=== PATIENT | male | born 1970 | race Caucasian/White ===

== ENCOUNTER 2020-01-25 10:56 | Emergency (ER) | payer OTHER, SELFPAY ==
--- NOTE | ~2020-01-25 | XR_ITS ---
EXAMINATION: XR hand RT min 3V INDICATION: Right hand pain TECHNIQUE: Three views of the right hand are obtained. COMPARISON: None available FINDINGS: No fracture is identified. There is soft tissue swelling of the second finger. There are pu nctate densities in the dorsomedial soft tissues near the head of the second proximal phalanx. There is mild osteoarthritis. IMPRESSION: 1. Punctate soft tissue densities dorsomedial to the head of the second proximal phalanx of unclear e tiology. Reviewed, dictated and finalized at location B. IMPRESSION: 1. Punctate soft tissue densities dorsomedial to the head of the second proxima l phalanx of unclear etiology.
--- NOTE | 2020-01-25 11:11 | ED.GENADULT ---
HPI - General Adult General Chief complaint: Extremity Injury, Upper Stated complaint: Right hand injury Source: patient and RN notes reviewed Mode of arrival: ambulatory Limitations: no limitations History of Present Illness HPI narrative: This is a 49 years old male presents to the office for an evaluation of right hand laceration four days. Incident happened at work. He accidentally hit a heavy sharp edge metal and took a piece of his skin off. He concerned that he might have a stress fracture of his knuckle since it has been more painful to move his finger with some swelling. He is right-hand dominant. He has been splinting his finger and tented his wound at home. He is not on any anticoagulation medication. TD is up-to-date. Related Data Home Medications Medication Instructions Recorded Confirmed citalopram [Celexa] mg 01/25/20 mirtazapine [Remeron] mg 01/25/20 mirtazapine [Remeron] mg 01/25/20 trazodone 01/25/20 Allergies Allergy/AdvReac Type Severity Reaction Status Date / Time No Known Allergies Allergy Unverified 11/13/14 17:44 Review of Systems Review of Systems: Narrative: CONSTITUTIONAL: Denies fever, chills CARDIOVASCULAR: Denies chest pain, palpitation RESPIRATORY: Denies dyspnea, wheezing, cough GASTROINTESTINAL: Denies abdominal pain, nausea, vomiting SKIN: reports cut to his right index finger at the knuckle MUSCULOSKELETAL: Reports right index finger pain with swelling NEUROLOGIC: Denies lightheaded/numbness All other systems reviewed are negative, except as documented in HPI. PMFSH Comments At time of signature, I agree with nursing past medical, surgical, social and family history. There is no relevant family history pertinent to the presenting complaint. Exam Narrative: Exam Narrative: GENERAL: This is a well-nourished, well-developed patient, in no apparent distress. CARDIOVASCULAR: Regular rate and rhythm without murmurs, gallops, or rubs. RESPIRATORY: Clear to auscultation. Breath sounds equal bilaterally. No wheezes, rales, or rhonchi. GASTROINTESTINAL: Abdomen soft, non-tender, nondistended. Bowel sounds are active. No hepato-splenomegaly, or palpable masses. No guarding. SKIN: right dorsal distal second metarcarpal noted skin avulsion with tinged of bleed NEURO: awake, alert, and oriented to person, place and time. There were no obvious focal neurologic abnormalities. Steady gait EXTREMITIES: The dorsum of the hand at the second metarcarpal proximal joints noted diffusely swollen and tender with ROM. Flexion and extension of the fingers is full and strong. Cap refills brisk. Radius pulses intact. Stanton Coma Scale Eye Opening: Spontaneous 4 Stanton Coma Scale Motor: Obeys Commands 6 Stanton Coma Scale Verbal: Oriented 5 Course Vital Signs Vital signs: Vital Signs Temperature 98.2 F 01/25/20 11:12 Pulse Rate 67 01/25/20 11:12 Respiratory Rate 18 01/25/20 11:12 Blood Pressure 115/72 01/25/20 11:12 Pulse Oximetry 99 01/25/20 11:12 Temperature 98.2 F 01/25/20 11:12 Pulse Rate 67 01/25/20 11:12 Respiratory Rate 18 01/25/20 11:12 Blood Pressure 115/72 01/25/20 11:12 Pulse Oximetry 99 01/25/20 11:12 Medical Decision Making MDM Narrative Medical decision making narrative: Discharge instructions reviewed with patient, as well as provided in writing per nursing staff. The instructions also include specific and strict return/GO TO THE ER as well as f/u information. All questions have been answered, and the patient deny any further questions with discharge and discharge plan. Differential Diagnosis Differential Diagnosis: sprain strain, contusion, laceration, wound infection Vital Signs Vital Signs: Vital Signs Temperature 98.2 F 01/25/20 11:12 Pulse Rate 67 01/25/20 11:12 Respiratory Rate 18 01/25/20 11:12 Blood Pressure 115/72 01/25/20 11:12 Pulse Oximetry 99 01/25/20 11:12 Temperature 98.2 F 01/25/20 11:1
[2020-01-25 11:12] VITALS: BP 115/72; PULSE 67; RESP 18; TEMP 36.8; O2SAT 99
--- NOTE | 2020-01-25 11:34 | PC.NURSE ---
in br to obtain ua spec.
== END 2020-01-25 11:53 | disposition home or self-care (01) ==
PROVIDERS: Emergency Provider Nurse Practitioner
DX: S61.401A Unspecified open wound of right hand, initial encounter (principal); L08.9 Local infection of the skin and subcutaneous tissue, unspecified; W22.8XXA Striking against or struck by other objects, initial encounter; Y99.0 Civilian activity done for income or pay
CPT/HCPCS: 73130; 99213; G0463